=== PATIENT | male | born 1975 | race African-American/Black ===

== ENCOUNTER 2017-07-23 07:27 | Emergency (ER) | payer MEDICARE, MEDICAID ==
[~2017-07-23] VITALS: Ht 167.6 cm; Wt 65.0 kg
[2017-07-23] MEDS ORDERED: SODIUM CHLORIDE 0.9% 1,000 ML IV ONE (07:38)
[2017-07-23] MEDS ORDERED: LORAZEPAM 2MG/ML CPJ IV ONE (07:45)
[2017-07-23 07:58] LABS: HEMATOCRIT. 39.9 % (42.0-52.0); HEMOGLOBIN. 13.2 g/dL (14.0-18.0); LYMPHOCYTES % 27.1 % (20.0-50.0); MEAN CORPUSCULAR HEMOGLOBIN 27.1 pg (28.0-32.0); MEAN CORPUSCULAR VOLUME 81.8 fL (80.0-94.0); MEAN PLATELET VOLUME 7.2 fl (7.4-10.4); MONOCYTES % 11.2 % (2.0-8.0); NEUTROPHILS % 52.7 % (40.0-76.0); PLATELET 239 x1000/uL (130-400); RED BLOOD CELL COUNT 4.88 mill/uL (4.7-6.1); RED CELL DISTRIBUTION WIDTH 14.7 % (11.6-14.6)
[2017-07-23 08:12] LABS: INR 1.1; PROTHROMBIN TIME 11.1 sec (9.4-11.6)
[2017-07-23 08:13] LABS: AMMONIA 40 uMol/L (<32)
[2017-07-23 08:17] LABS: CARBON DIOXIDE 29 mEq/L (21-32); CHLORIDE 102 mEq/L (98-107); ETHANOL BLOOD < 10 mg/dL; TROPONIN I < 0.02 ng/mL (0.00-0.04)
[2017-07-23 10:33] VITALS: BP 120/78
[2017-07-23 11:05] LABS: CLARITY URINE CLEAR (CLEAR); COLOR URINE YELLOW (YELLOW); GLUCOSE URINE NEGATIVE (NEGATIVE); KETONES URINE NEGATIVE (NEGATIVE); LEUKOCYTE ESTERASE URINE 3+ (NEGATIVE); NITRITE URINE POSITIVE (NEGATIVE); OCCULT BLOOD URINE NEGATIVE (NEGATIVE); PH URINE 7.5 (4.5-8.0); PROTEIN URINE NEGATIVE (NEGATIVE); SPECIFIC GRAVITY URINE 1.009 (1.005-1.030); UROBILINOGEN URINE 0.2 E.U./dL (0.2-1.0)
[2017-07-23 11:57] LABS: *AMPHETAMINES SCREEN URINE NEGATIVE (NEGATIVE); *BARBITURATES SCREEN URINE NEGATIVE (NEGATIVE); *BENZODIAZEPINES SCREEN URINE NEGATIVE (NEGATIVE); *COCAINE SCREEN URINE NEGATIVE (NEGATIVE); CANNABINOID URINE SCREEN NEGATIVE (NEGATIVE); METHADONE URINE SCREEN NEGATIVE (NEGATIVE); OPIATES URINE SCREEN NEGATIVE (NEGATIVE); PHENCYCLIDINE URINE SCREEN NEGATIVE (NEGATIVE)
== END 2017-07-23 10:52 | disposition home or self-care (01) ==
LOC: ER 07:45
DX: R55 Syncope and collapse (principal); F79 Unspecified intellectual disabilities; I12.9 Hypertensive chronic kidney disease with stage 1 through stage 4 chronic kidney disease, or unspecified chronic kidney disease; E11.22 Type 2 diabetes mellitus with diabetic chronic kidney disease; N18.9 Chronic kidney disease, unspecified; Z88.8 Allergy status to other drugs, medicaments and biological substances
CPT/HCPCS: 36415; 70450; 71010; 80053; 80305; 81001; 82140; 83690; 83880; 84484; 85025; 85610; 93005; 96361; 96374; 99285; G0482; J2060; J7030

== ENCOUNTER 2019-12-24 13:20 | Inpatient (IN) | payer BC, OTHER, MEDICAID ==
[~2019-12-24] VITALS: Ht 172.7 cm; Wt 58.5 kg
[2019-12-24] MEDS ORDERED: SODIUM CHLORIDE 0.9% 1,000 ML IV ONE ×2 (13:35→15:19)
[2019-12-24 14:10] LABS: HEMATOCRIT. 41.7 % (42.0-52.0); HEMOGLOBIN. 13.2 g/dL (14.0-18.0); MEAN CORPUSCULAR HEMOGLOBIN 26.8 pg (28.0-32.0); MEAN CORPUSCULAR VOLUME 84.4 fL (80.0-94.0); MEAN PLATELET VOLUME 7.8 fl (7.4-10.4); PLATELET 327 x1000/uL (130-400); RED BLOOD CELL COUNT 4.94 mill/uL (4.7-6.1); RED CELL DISTRIBUTION WIDTH 14.7 % (11.6-14.6)
[2019-12-24] MEDS ORDERED: PROPOFOL 10MG/ML 100ML 100 ML IV ONE (14:15)
[2019-12-24 14:17] LABS: CHLORIDE 102 mEq/L (98-107)
[2019-12-24 14:18] LABS: PROTHROMBIN TIME 11.1 sec (9.6-11.0)
[2019-12-24 14:21] LABS: ETHANOL BLOOD < 10 mg/dL
[2019-12-24 14:30] LABS: CLARITY URINE CLEAR (CLEAR); COLOR URINE YELLOW (YELLOW); KETONES URINE NEGATIVE (NEGATIVE); LEUKOCYTE ESTERASE URINE NEGATIVE (NEGATIVE); NITRITE URINE NEGATIVE (NEGATIVE); OCCULT BLOOD URINE 2+ (NEGATIVE); PROTEIN URINE 3+ (NEGATIVE); SPECIFIC GRAVITY URINE 1.024 (1.005-1.030)
[2019-12-24 15:03] LABS: *AMPHETAMINES SCREEN URINE NEGATIVE (NEGATIVE); *BARBITURATES SCREEN URINE NEGATIVE (NEGATIVE); *BENZODIAZEPINES SCREEN URINE NEGATIVE (NEGATIVE); *COCAINE SCREEN URINE NEGATIVE (NEGATIVE)
[2019-12-24 15:04] LABS: CANNABINOID URINE SCREEN NEGATIVE (NEGATIVE); METHADONE URINE SCREEN NEGATIVE (NEGATIVE); OPIATES URINE SCREEN NEGATIVE (NEGATIVE); PHENCYCLIDINE URINE SCREEN NEGATIVE (NEGATIVE)
[2019-12-24] MEDS ORDERED: CEFTRIAXONE 1 G PREMIX 50 ML IV ONE (15:15)
[2019-12-24 15:34] LABS: PLATELET ESTIMATE NORMAL
[2019-12-24] MEDS ORDERED: LEVOFLOXACIN 750MG PREMIX 150 ML IV ONE (15:45)
[2019-12-24] MEDS ORDERED: SODIUM CHLORIDE 0.9% 1000ML BAG (SEPSIS BOLUS) IV ONE (15:45)
[2019-12-24] MEDS ORDERED: ACETAMINOPHEN 650MG SUPP PR PRN (17:15)
[2019-12-24] MEDS ORDERED: ONDANSETRON HCL 4MG/2ML INJ IV PRN (17:15)
[2019-12-24 17:52] LABS: BG BASE EXCESS -7.5 mmol/L (-2.0-2.0); BG CARBOXYHEMOGLOBIN 0.3 % (0.5-1.5); BG DEOXYHEMOGLOBIN 8.8 % (0.0-5.0); BG FRACTION INSPIRED OXYGEN 100; BG HCO3 ACT 18.1 mmol/L (22.0-26.0); BG METHEMOGLOBIN 0.2 % (0.0-1.5); BG OXYGEN SATURATION 91.2 % (92.0-98.5); BG OXYHEMOGLOBIN 90.7 % (94.0-97.0); BG PCO2 37.1 mmHg (35.0-45.0); BG PH 7.306 (7.350-7.450); BG PO2 64.8 mmHg (75.0-100.0); BG SAMPLE SITE RIGHT RADIAL; BG TIDAL VOLUME(mL) 550 mL; BG TOTAL HEMOGLOBIN 13.8 g/dL (12.0-18.0); BG VENT MODE VENT - A/C; BG VENT RATE 18 set
[2019-12-24] MEDS ORDERED: AZITHROMYCIN 500 MG in DEXT 5% WATER 250 ML IV SCH (19:30)
[2019-12-25] VITALS (91 sets, daily range): BP systolic 69–208; BP diastolic 18–250
[2019-12-25] MEDS ORDERED: SODIUM CHLORIDE 0.9% 250 ML IV ONE (03:00)
[2019-12-25] MEDS ORDERED: LORAZEPAM 2MG/ML CPJ IV PRN (03:00)
[2019-12-25 04:45] LABS: BG BASE EXCESS -9.3 mmol/L (-2.0-2.0); BG CARBOXYHEMOGLOBIN 0.3 % (0.5-1.5); BG DEOXYHEMOGLOBIN 13.1 % (0.0-5.0); BG FRACTION INSPIRED OXYGEN 100; BG METHEMOGLOBIN 0.2 % (0.0-1.5); BG OXYGEN SATURATION 86.8 % (92.0-98.5); BG OXYHEMOGLOBIN 86.4 % (94.0-97.0); BG PCO2 28.6 mmHg (35.0-45.0); BG PH 7.337 (7.350-7.450); BG PO2 53.6 mmHg (75.0-100.0); BG SAMPLE SITE LEFT BRACHIAL; BG TIDAL VOLUME(mL) 550 mL; BG TOTAL HEMOGLOBIN 13.6 g/dL (12.0-18.0); BG VENT MODE VENT - A/C; BG VENT RATE 18 set
[2019-12-25] MEDS ORDERED: SODIUM CHLORIDE 0.9% 500 ML IV ONE (05:00)
[2019-12-25] MEDS ORDERED: CEFEPIME 2,000 MG in DEXT 5% WATER 100 ML IV SCH (05:00)
[2019-12-25] MEDS ORDERED: PHENYLEPHRINE 40 MG in DEXT 5% WATER 246 ML IV PRN (05:00)
[2019-12-25] MEDS ORDERED: NOREPINEPHRINE 32 MG in DEXT 5% WATER 468 ML IV PRN (05:00)
[2019-12-25 05:44] LABS: HEMATOCRIT. 41.2 % (42.0-52.0); MEAN CORPUSCULAR HEMOGLOBIN 26.7 pg (28.0-32.0); MEAN CORPUSCULAR VOLUME 84.4 fL (80.0-94.0); MEAN PLATELET VOLUME 8.3 fl (7.4-10.4); PLATELET 221 x1000/uL (130-400); RED BLOOD CELL COUNT 4.88 mill/uL (4.7-6.1); RED CELL DISTRIBUTION WIDTH 14.8 % (11.6-14.6)
[2019-12-25 06:06] LABS: CHLORIDE 109 mEq/L (98-107)
[2019-12-25 06:17] LABS: LDL CHOLESTEROL 14 mg/dL (5-100)
[2019-12-25 06:18] LABS: HDL CHOLESTEROL 81 mg/dL (40-59)
[2019-12-25 06:29] LABS: CREATINE KINASE 2769 IU/L (39-308)
[2019-12-25] MEDS: HYDROXYCHLOROQUINE SULFATE 200MG TABLET PO SCH ×2 (06:34→18:36)
[2019-12-25] MEDS: LORAZEPAM 2MG/ML CPJ IV PRN (06:40)
[2019-12-25] MEDS: ASCORBIC ACID 500 MG TABLET PO SCH ×2 (09:00→20:12)
[2019-12-25] MEDS: ZINC SULFATE 220 MG ( 50 ) CAPSULE PO SCH (09:00)
[2019-12-25] MEDS: ENOXAPARIN 40MG/0.4ML SYR SUBCUT SCH (09:00)
[2019-12-25 10:18] LABS: PLATELET ESTIMATE NORMAL
[2019-12-25] MEDS: PANTOPRAZOLE SODIUM 40 MG/VIAL IV SCH (15:00)
[2019-12-25] MEDS ORDERED: AZITHROMYCIN 500 MG in DEXT 5% WATER 250 ML IV SCH (20:00)
[2019-12-25] MEDS: LEVETIRACETAM 500MG/5ML CUP PO SCH (20:12)
[2019-12-25] MEDS: CEFEPIME 2,000 MG in DEXT 5% WATER 100 ML IV SCH (20:45)
[2019-12-25] MEDS: AZITHROMYCIN 500 MG in DEXT 5% WATER 250 ML IV SCH (20:46)
[2019-12-26] VITALS (87 sets, daily range): BP systolic 73–143; BP diastolic 34–121
[2019-12-26] MEDS: LORAZEPAM 2MG/ML CPJ IV PRN ×2 (03:31→22:20)
[2019-12-26] MEDS: HYDROXYCHLOROQUINE SULFATE 200MG TABLET PO SCH ×2 (05:44→17:08)
[2019-12-26] MEDS: CEFEPIME 2,000 MG in DEXT 5% WATER 100 ML IV SCH ×2 (08:09→22:20)
[2019-12-26] MEDS: ZINC SULFATE 220 MG ( 50 ) CAPSULE PO SCH (08:09)
[2019-12-26] MEDS: ASCORBIC ACID 500 MG TABLET PO SCH ×2 (08:09→22:20)
[2019-12-26] MEDS: PANTOPRAZOLE SODIUM 40 MG/VIAL IV SCH (08:09)
[2019-12-26] MEDS: LEVETIRACETAM 500MG/5ML CUP PO SCH ×2 (08:09→22:20)
[2019-12-26] MEDS: ENOXAPARIN 40MG/0.4ML SYR SUBCUT SCH (08:10)
[2019-12-26] MEDS: ACETAMINOPHEN 325MG TABLET PO PRN ×2 (08:47→14:30)
[2019-12-26 09:32] LABS: BG BASE EXCESS -2.8 mmol/L (-2.0-2.0); BG CARBOXYHEMOGLOBIN 0.3 % (0.5-1.5); BG DEOXYHEMOGLOBIN 0.3 % (0.0-5.0); BG FRACTION INSPIRED OXYGEN 100; BG HCO3 ACT 20.8 mmol/L (22.0-26.0); BG METHEMOGLOBIN 0.5 % (0.0-1.5); BG OXYGEN SATURATION 99.7 % (92.0-98.5); BG OXYHEMOGLOBIN 98.9 % (94.0-97.0); BG PCO2 32.9 mmHg (35.0-45.0); BG PH 7.418 (7.350-7.450); BG SAMPLE SITE RIGHT RADIAL; BG TIDAL VOLUME(mL) 550 mL; BG TOTAL HEMOGLOBIN 13.9 g/dL (12.0-18.0); BG VENT MODE VENT - A/C; BG VENT RATE 18 set
[2019-12-26] MEDS: AZITHROMYCIN 500 MG in DEXT 5% WATER 250 ML IV SCH (22:20)
[2019-12-27] VITALS (56 sets, daily range): BP systolic 103–150; BP diastolic 55–86
[2019-12-27] MEDS ORDERED: DEXTROSE 50% WATER 50ML SYRINGE IV PRN (03:00)
[2019-12-27 05:27] LABS: HEMATOCRIT. 35.9 % (42.0-52.0); HEMOGLOBIN. 11.3 g/dL (14.0-18.0); MEAN CORPUSCULAR HEMOGLOBIN 26.9 pg (28.0-32.0); MEAN CORPUSCULAR VOLUME 85.6 fL (80.0-94.0); MEAN PLATELET VOLUME 8.5 fl (7.4-10.4); PLATELET 213 x1000/uL (130-400); RED CELL DISTRIBUTION WIDTH 15.3 % (11.6-14.6)
[2019-12-27] MEDS: HYDROXYCHLOROQUINE SULFATE 200MG TABLET PO SCH (05:33)
[2019-12-27 05:51] LABS: CHLORIDE 100 mEq/L (98-107)
[2019-12-27 06:05] LABS: PHOSPHORUS 1.8 mg/dL (2.5-4.9)
[2019-12-27] MEDS: BLOOD SUGAR DIAGNOSTIC STRIP TEST SCH ×4 (07:30→21:03)
[2019-12-27] MEDS: INSULIN LISPRO 100 UNITS/ML SUBCUT SCH ×4 (07:31→21:03)
[2019-12-27] MEDS: ENOXAPARIN 40MG/0.4ML SYR SUBCUT SCH (09:20)
[2019-12-27] MEDS: ZINC SULFATE 220 MG ( 50 ) CAPSULE PO SCH (09:20)
[2019-12-27] MEDS: LEVETIRACETAM 500MG/5ML CUP PO SCH ×2 (09:20→21:02)
[2019-12-27] MEDS: ASCORBIC ACID 500 MG TABLET PO SCH ×2 (09:20→21:02)
[2019-12-27] MEDS: CEFEPIME 2,000 MG in DEXT 5% WATER 100 ML IV SCH ×2 (09:20→19:01)
[2019-12-27 09:34] LABS: BG BASE EXCESS -0.5 mmol/L (-2.0-2.0); BG CARBOXYHEMOGLOBIN 0.3 % (0.5-1.5); BG DEOXYHEMOGLOBIN 1.4 % (0.0-5.0); BG FRACTION INSPIRED OXYGEN 60; BG HCO3 ACT 23.5 mmol/L (22.0-26.0); BG METHEMOGLOBIN 0.3 % (0.0-1.5); BG OXYGEN SATURATION 98.6 % (92.0-98.5); BG PCO2 36.6 mmHg (35.0-45.0); BG PH 7.426 (7.350-7.450); BG PO2 117.3 mmHg (75.0-100.0); BG SAMPLE SITE RIGHT BRACHIAL; BG TIDAL VOLUME(mL) 550 mL; BG TOTAL HEMOGLOBIN 13.3 g/dL (12.0-18.0); BG VENT MODE VENT - A/C; BG VENT RATE 18 set
[2019-12-27 10:20] LABS: NUCLEATED RED BLOOD CELLS 1 /100 WBC; PLATELET ESTIMATE NORMAL
[2019-12-27] MEDS: PANTOPRAZOLE SODIUM 40 MG/VIAL IV SCH (10:29)
[2019-12-27] MEDS ORDERED: POTASSIUM PHOS,M-BASIC-D-BASIC 20 MMOL in DEXT 5% WATER 243.3333 ML IV SCH (11:00)
[2019-12-27] MEDS: AZITHROMYCIN 500 MG in DEXT 5% WATER 250 ML IV SCH (21:02)
[2019-12-28] VITALS (36 sets, daily range): BP systolic 96–154; BP diastolic 45–87
[2019-12-28 05:35] LABS: HEMATOCRIT. 36.5 % (42.0-52.0); HEMOGLOBIN. 11.7 g/dL (14.0-18.0); MEAN CORPUSCULAR HEMOGLOBIN 26.5 pg (28.0-32.0); MEAN CORPUSCULAR VOLUME 82.2 fL (80.0-94.0); MEAN PLATELET VOLUME 8.7 fl (7.4-10.4); PLATELET 252 x1000/uL (130-400); RED BLOOD CELL COUNT 4.44 mill/uL (4.7-6.1); RED CELL DISTRIBUTION WIDTH 15.1 % (11.6-14.6)
[2019-12-28 05:45] LABS: CHLORIDE 108 mEq/L (98-107)
[2019-12-28] MEDS: CEFEPIME 2,000 MG in DEXT 5% WATER 100 ML IV SCH ×2 (07:12→20:27)
[2019-12-28] MEDS: BLOOD SUGAR DIAGNOSTIC STRIP TEST SCH ×4 (08:27→20:36)
[2019-12-28] MEDS: ASCORBIC ACID 500 MG TABLET PO SCH ×2 (08:36→20:34)
[2019-12-28] MEDS: LEVETIRACETAM 500MG/5ML CUP PO SCH ×2 (08:36→20:34)
[2019-12-28] MEDS: PANTOPRAZOLE SODIUM 40 MG/VIAL IV SCH (08:36)
[2019-12-28] MEDS: ZINC SULFATE 220 MG ( 50 ) CAPSULE PO SCH (08:36)
[2019-12-28] MEDS: ENOXAPARIN 40MG/0.4ML SYR SUBCUT SCH (08:37)
[2019-12-28] MEDS: INSULIN LISPRO 100 UNITS/ML SUBCUT SCH ×4 (08:39→21:44)
[2019-12-28] MEDS ORDERED: METOPROLOL TARTRATE 25MG TABLET PO SCH (10:45)
[2019-12-28 11:11] LABS: BG BASE EXCESS 3.9 mmol/L (-2.0-2.0); BG DEOXYHEMOGLOBIN 1.1 % (0.0-5.0); BG FRACTION INSPIRED OXYGEN 60; BG HCO3 ACT 28.1 mmol/L (22.0-26.0); BG METHEMOGLOBIN 0.4 % (0.0-1.5); BG OXYGEN SATURATION 98.9 % (92.0-98.5); BG OXYHEMOGLOBIN 98.5 % (94.0-97.0); BG PCO2 40.9 mmHg (35.0-45.0); BG PH 7.455 (7.350-7.450); BG PO2 136.4 mmHg (75.0-100.0); BG SAMPLE SITE RIGHT RADIAL; BG TIDAL VOLUME(mL) 550 mL; BG TOTAL HEMOGLOBIN 12.5 g/dL (12.0-18.0); BG VENT MODE VENT - A/C; BG VENT RATE 18 set
[2019-12-28] MEDS ORDERED: CLONIDINE 0.1MG TABLET PO NR (11:30)
[2019-12-28 12:08] LABS: PLATELET ESTIMATE NORMAL
[2019-12-28] MEDS: SODIUM CHLORIDE 0.45% 1,000 ML IV SCH (15:22)
[2019-12-28] MEDS ORDERED: SODIUM PHOS,M-BASIC-D-BASIC 15 MM in DEXT 5% WATER 250 ML IV SCH (16:00)
[2019-12-28] MEDS: AZITHROMYCIN 500 MG in DEXT 5% WATER 250 ML IV SCH (20:35)
[2019-12-28] MEDS: ACETAMINOPHEN 325MG TABLET PO PRN (20:35)
[2019-12-28] MEDS: METOPROLOL TARTRATE 25MG TABLET PO SCH (20:36)
[2019-12-29] VITALS (49 sets, daily range): BP systolic 105–152; BP diastolic 41–138
[2019-12-29] MEDS: ACETAMINOPHEN 325MG TABLET PO PRN ×2 (04:15→15:26)
[2019-12-29 06:21] LABS: HEMATOCRIT. 36.9 % (42.0-52.0); HEMOGLOBIN. 11.9 g/dL (14.0-18.0); MEAN CORPUSCULAR HEMOGLOBIN 26.7 pg (28.0-32.0); MEAN CORPUSCULAR VOLUME 82.6 fL (80.0-94.0); MEAN PLATELET VOLUME 8.8 fl (7.4-10.4); PLATELET 238 x1000/uL (130-400); RED BLOOD CELL COUNT 4.47 mill/uL (4.7-6.1); RED CELL DISTRIBUTION WIDTH 14.8 % (11.6-14.6)
[2019-12-29 06:30] LABS: CHLORIDE 107 mEq/L (98-107)
[2019-12-29] MEDS: INSULIN LISPRO 100 UNITS/ML SUBCUT SCH ×4 (08:20→20:32)
[2019-12-29 08:21] LABS: BG BASE EXCESS 0.6 mmol/L (-2.0-2.0); BG CARBOXYHEMOGLOBIN 0.3 % (0.5-1.5); BG DEOXYHEMOGLOBIN 1.9 % (0.0-5.0); BG FRACTION INSPIRED OXYGEN 60; BG HCO3 ACT 25.4 mmol/L (22.0-26.0); BG METHEMOGLOBIN 0.3 % (0.0-1.5); BG OXYGEN SATURATION 98.1 % (92.0-98.5); BG OXYHEMOGLOBIN 97.5 % (94.0-97.0); BG PCO2 41.8 mmHg (35.0-45.0); BG PH 7.402 (7.350-7.450); BG PO2 102.5 mmHg (75.0-100.0); BG SAMPLE SITE RIGHT BRACHIAL; BG TIDAL VOLUME(mL) 550 mL; BG TOTAL HEMOGLOBIN 12.2 g/dL (12.0-18.0); BG VENT MODE VENT - A/C; BG VENT RATE 18 set
[2019-12-29] MEDS: BLOOD SUGAR DIAGNOSTIC STRIP TEST SCH ×4 (08:21→20:32)
[2019-12-29] MEDS: PANTOPRAZOLE SODIUM 40 MG/VIAL IV SCH (08:32)
[2019-12-29] MEDS: CEFEPIME 2,000 MG in DEXT 5% WATER 100 ML IV SCH ×2 (08:32→20:31)
[2019-12-29] MEDS: LEVETIRACETAM 500MG/5ML CUP PO SCH ×2 (08:32→20:31)
[2019-12-29] MEDS: ZINC SULFATE 220 MG ( 50 ) CAPSULE PO SCH (08:32)
[2019-12-29] MEDS: ASCORBIC ACID 500 MG TABLET PO SCH ×2 (08:32→20:32)
[2019-12-29] MEDS: METOPROLOL TARTRATE 25MG TABLET PO SCH ×2 (08:33→20:32)
[2019-12-29] MEDS: ENOXAPARIN 40MG/0.4ML SYR SUBCUT SCH (08:33)
[2019-12-29] MEDS: SODIUM CHLORIDE 0.45% 1,000 ML IV SCH (09:01)
[2019-12-29 12:44] LABS: PLATELET ESTIMATE NORMAL
[2019-12-29] MEDS: DEXT 5%/0.45% NACL 1000ML 1,000 ML IV SCH (18:49)
[2019-12-29] MEDS: VANCOMYCIN 1 G PREMIX 200 ML IV SCH (20:31)
[2019-12-29] MEDS: METRONIDAZOLE 500 MG PREMIX 100 ML IV SCH (21:08)
[2019-12-30] VITALS (45 sets, daily range): BP systolic 95–171; BP diastolic 56–103
[2019-12-30] MEDS: ACETAMINOPHEN 325MG TABLET PO PRN ×3 (00:08→20:50)
[2019-12-30] MEDS: VANCOMYCIN 1 G PREMIX 200 ML IV SCH ×3 (04:38→20:11)
[2019-12-30] MEDS: METRONIDAZOLE 500 MG PREMIX 100 ML IV SCH ×3 (05:26→21:19)
[2019-12-30 06:21] LABS: HEMATOCRIT. 40.7 % (42.0-52.0); HEMOGLOBIN. 12.8 g/dL (14.0-18.0); MEAN CORPUSCULAR HEMOGLOBIN 26.5 pg (28.0-32.0); MEAN CORPUSCULAR VOLUME 83.9 fL (80.0-94.0); MEAN PLATELET VOLUME 9.2 fl (7.4-10.4); PLATELET 264 x1000/uL (130-400); RED BLOOD CELL COUNT 4.85 mill/uL (4.7-6.1); RED CELL DISTRIBUTION WIDTH 15.5 % (11.6-14.6)
[2019-12-30 06:53] LABS: HEPATITIS B SURFACE ANTIGEN NEGATIVE
[2019-12-30 07:00] LABS: CHLORIDE 105 mEq/L (98-107)
[2019-12-30 07:22] LABS: HEPATITIS A AB IGM NEGATIVE (NEGATIVE)
[2019-12-30] MEDS: BLOOD SUGAR DIAGNOSTIC STRIP TEST SCH ×4 (07:26→21:30)
[2019-12-30] MEDS: INSULIN LISPRO 100 UNITS/ML SUBCUT SCH ×4 (07:26→21:32)
[2019-12-30] MEDS: PANTOPRAZOLE SODIUM 40 MG/VIAL IV SCH (08:14)
[2019-12-30] MEDS: ASCORBIC ACID 500 MG TABLET PO SCH ×2 (08:14→21:20)
[2019-12-30] MEDS: ZINC SULFATE 220 MG ( 50 ) CAPSULE PO SCH (08:14)
[2019-12-30] MEDS: CEFEPIME 2,000 MG in DEXT 5% WATER 100 ML IV SCH ×2 (08:14→20:11)
[2019-12-30] MEDS: LEVETIRACETAM 500MG/5ML CUP PO SCH ×2 (08:14→21:19)
[2019-12-30] MEDS: METOPROLOL TARTRATE 25MG TABLET PO SCH ×2 (08:15→21:20)
[2019-12-30] MEDS: ENOXAPARIN 40MG/0.4ML SYR SUBCUT SCH (08:15)
[2019-12-30] MEDS: DEXT 5%/0.45% NACL 1000ML 1,000 ML IV SCH ×2 (08:15→20:11)
[2019-12-30 09:26] LABS: BG BASE EXCESS -0.1 mmol/L (-2.0-2.0); BG CARBOXYHEMOGLOBIN 0.4 % (0.5-1.5); BG DEOXYHEMOGLOBIN 6.4 % (0.0-5.0); BG FRACTION INSPIRED OXYGEN 50; BG HCO3 ACT 24.5 mmol/L (22.0-26.0); BG METHEMOGLOBIN 0.2 % (0.0-1.5); BG OXYGEN SATURATION 93.6 % (92.0-98.5); BG PH 7.405 (7.350-7.450); BG PO2 62.4 mmHg (75.0-100.0); BG PRESSURE SUPPORT 10; BG SAMPLE SITE RIGHT RADIAL; BG TOTAL HEMOGLOBIN 13.3 g/dL (12.0-18.0); BG VENT MODE VENT - CPAP
[2019-12-30 10:56] LABS: PLATELET ESTIMATE NORMAL
[2019-12-31] VITALS (49 sets, daily range): BP systolic 105–192; BP diastolic 60–103
[2019-12-31 02:51] LABS: BASOPHILS % 0.4 % (0.0-2.0); EOSINOPHILS % 3.5 % (0.0-5.0); HEMATOCRIT. 35.1 % (42.0-52.0); HEMOGLOBIN. 11.6 g/dL (14.0-18.0); LYMPHOCYTES % 14.1 % (20.0-50.0); MEAN CORPUSCULAR HEMOGLOBIN 26.8 pg (28.0-32.0); MEAN CORPUSCULAR VOLUME 81.3 fL (80.0-94.0); MEAN PLATELET VOLUME 8.4 fl (7.4-10.4); MONOCYTES % 7.9 % (2.0-8.0); NEUTROPHILS % 74.1 % (40.0-76.0); PLATELET 307 x1000/uL (130-400); RED BLOOD CELL COUNT 4.32 mill/uL (4.7-6.1)
[2019-12-31 02:59] LABS: CHLORIDE 107 mEq/L (98-107)
[2019-12-31 03:08] LABS: VANCOMYCIN TROUGH 24.8 ug/mL (5.0-10.0)
[2019-12-31] MEDS: VANCOMYCIN 1 G PREMIX 200 ML IV SCH (04:02)
[2019-12-31] MEDS: METRONIDAZOLE 500 MG PREMIX 100 ML IV SCH ×3 (04:44→21:04)
[2019-12-31] MEDS: BLOOD SUGAR DIAGNOSTIC STRIP TEST SCH ×4 (07:50→21:05)
[2019-12-31] MEDS: INSULIN LISPRO 100 UNITS/ML SUBCUT SCH ×4 (08:20→21:06)
[2019-12-31] MEDS: ASCORBIC ACID 500 MG TABLET PO SCH ×2 (09:57→21:05)
[2019-12-31] MEDS: ENOXAPARIN 40MG/0.4ML SYR SUBCUT SCH (09:57)
[2019-12-31] MEDS: ZINC SULFATE 220 MG ( 50 ) CAPSULE PO SCH (09:57)
[2019-12-31] MEDS: METOPROLOL TARTRATE 25MG TABLET PO SCH ×2 (09:57→21:05)
[2019-12-31] MEDS: LEVETIRACETAM 500MG/5ML CUP PO SCH ×2 (09:57→21:04)
[2019-12-31] MEDS: PANTOPRAZOLE SODIUM 40 MG/VIAL IV SCH (10:05)
[2019-12-31] MEDS: DEXT 5%/0.45% NACL 1000ML 1,000 ML IV SCH ×2 (10:24→23:54)
[2019-12-31 13:26] LABS: BG BASE EXCESS 1.5 mmol/L (-2.0-2.0); BG CARBOXYHEMOGLOBIN 0.2 % (0.5-1.5); BG DEOXYHEMOGLOBIN 1.2 % (0.0-5.0); BG METHEMOGLOBIN 0.1 % (0.0-1.5); BG OXYGEN SATURATION 98.8 % (92.0-98.5); BG OXYHEMOGLOBIN 98.5 % (94.0-97.0); BG PCO2 35.5 mmHg (35.0-45.0); BG PH 7.465 (7.350-7.450); BG PO2 135.8 mmHg (75.0-100.0); BG SAMPLE SITE RIGHT RADIAL; BG TIDAL VOLUME(mL) 550 mL; BG TOTAL HEMOGLOBIN 12.8 g/dL (12.0-18.0); BG VENT MODE VENT - A/C; BG VENT RATE 18 set
[2019-12-31] MEDS ORDERED: LORAZEPAM 2MG/ML CPJ IV NR (16:15)
[2019-12-31] MEDS: VANCOMYCIN 1250MG in DEXTROSE 5% WATER 250ML IV SCH (17:28)
[2019-12-31] MEDS: CEFEPIME 1,000 MG in DEXTROSE 5% WATER 50 ML IV SCH (20:12)
[2020-01-01] VITALS (47 sets, daily range): BP systolic 121–166; BP diastolic 68–95
[2020-01-01] MEDS: METRONIDAZOLE 500 MG PREMIX 100 ML IV SCH ×3 (04:48→20:42)
[2020-01-01 05:17] LABS: BASOPHILS % 0.2 % (0.0-2.0); EOSINOPHILS % 3.8 % (0.0-5.0); HEMATOCRIT. 35.8 % (42.0-52.0); HEMOGLOBIN. 11.5 g/dL (14.0-18.0); LYMPHOCYTES % 11.5 % (20.0-50.0); MEAN CORPUSCULAR HEMOGLOBIN 26.5 pg (28.0-32.0); MEAN CORPUSCULAR VOLUME 82.3 fL (80.0-94.0); MEAN PLATELET VOLUME 8.6 fl (7.4-10.4); MONOCYTES % 6.9 % (2.0-8.0); NEUTROPHILS % 77.6 % (40.0-76.0); PLATELET 369 x1000/uL (130-400); RED BLOOD CELL COUNT 4.35 mill/uL (4.7-6.1); RED CELL DISTRIBUTION WIDTH 15.3 % (11.6-14.6)
[2020-01-01 05:23] LABS: CHLORIDE 107 mEq/L (98-107)
[2020-01-01] MEDS: VANCOMYCIN 1250MG in DEXTROSE 5% WATER 250ML IV SCH ×2 (06:11→18:45)
[2020-01-01] MEDS: BLOOD SUGAR DIAGNOSTIC STRIP TEST SCH ×4 (07:50→20:43)
[2020-01-01] MEDS: PANTOPRAZOLE SODIUM 40 MG/VIAL IV SCH (09:25)
[2020-01-01] MEDS: LEVETIRACETAM 500MG/5ML CUP PO SCH ×2 (09:25→20:42)
[2020-01-01] MEDS: ZINC SULFATE 220 MG ( 50 ) CAPSULE PO SCH (09:26)
[2020-01-01] MEDS: CEFEPIME 1,000 MG in DEXTROSE 5% WATER 50 ML IV SCH ×2 (09:26→20:42)
[2020-01-01] MEDS: ENOXAPARIN 40MG/0.4ML SYR SUBCUT SCH (09:26)
[2020-01-01] MEDS: ASCORBIC ACID 500 MG TABLET PO SCH ×2 (09:26→20:42)
[2020-01-01] MEDS: INSULIN LISPRO 100 UNITS/ML SUBCUT SCH ×4 (09:27→20:43)
[2020-01-01] MEDS: METOPROLOL TARTRATE 25MG TABLET PO SCH ×2 (09:30→20:43)
[2020-01-01 09:47] LABS: BG BASE EXCESS 0.7 mmol/L (-2.0-2.0); BG DEOXYHEMOGLOBIN 1.1 % (0.0-5.0); BG FRACTION INSPIRED OXYGEN 50; BG HCO3 ACT 24.4 mmol/L (22.0-26.0); BG METHEMOGLOBIN 0.3 % (0.0-1.5); BG OXYGEN SATURATION 98.9 % (92.0-98.5); BG OXYHEMOGLOBIN 98.6 % (94.0-97.0); BG PCO2 36.3 mmHg (35.0-45.0); BG PH 7.446 (7.350-7.450); BG SAMPLE SITE RIGHT RADIAL; BG TIDAL VOLUME(mL) 550 mL; BG TOTAL HEMOGLOBIN 12.5 g/dL (12.0-18.0); BG VENT MODE VENT - A/C; BG VENT RATE 18 set
[2020-01-01 10:47] LABS: BG BASE EXCESS 0.8 mmol/L (-2.0-2.0); BG CARBOXYHEMOGLOBIN 0.3 % (0.5-1.5); BG DEOXYHEMOGLOBIN 1.2 % (0.0-5.0); BG FRACTION INSPIRED OXYGEN 50; BG HCO3 ACT 24.8 mmol/L (22.0-26.0); BG METHEMOGLOBIN 0.4 % (0.0-1.5); BG OXYGEN SATURATION 98.8 % (92.0-98.5); BG OXYHEMOGLOBIN 98.1 % (94.0-97.0); BG PCO2 37.5 mmHg (35.0-45.0); BG PH 7.438 (7.350-7.450); BG PO2 130.9 mmHg (75.0-100.0); BG PRESSURE SUPPORT 10; BG SAMPLE SITE RIGHT RADIAL; BG TOTAL HEMOGLOBIN 12.6 g/dL (12.0-18.0); BG VENT MODE VENT - CPAP
[2020-01-01] MEDS ORDERED: POTASSIUM CHLORIDE INJ 40 MEQ in DEXT 5% WATER 250 ML IV SCH (12:00)
[2020-01-01] MEDS: DEXT 5%/0.45% NACL 1000ML 1,000 ML IV SCH (12:30)
[2020-01-01] MEDS ORDERED: PROPOFOL 10MG/ML 100ML 100 ML IV PRN (15:00)
[2020-01-02] VITALS (49 sets, daily range): BP systolic 132–170; BP diastolic 71–108
[2020-01-02] MEDS: METRONIDAZOLE 500 MG PREMIX 100 ML IV SCH ×3 (05:10→21:11)
[2020-01-02] MEDS: VANCOMYCIN 1250MG in DEXTROSE 5% WATER 250ML IV SCH (05:44)
[2020-01-02 05:45] LABS: CHLORIDE 107 mEq/L (98-107)
[2020-01-02 05:48] LABS: BASOPHILS % 0.5 % (0.0-2.0); EOSINOPHILS % 2.1 % (0.0-5.0); HEMATOCRIT. 37.3 % (42.0-52.0); LYMPHOCYTES % 10.2 % (20.0-50.0); MEAN CORPUSCULAR HEMOGLOBIN 26.5 pg (28.0-32.0); MEAN PLATELET VOLUME 8.6 fl (7.4-10.4); NEUTROPHILS % 79.2 % (40.0-76.0); PLATELET 438 x1000/uL (130-400); RED BLOOD CELL COUNT 4.54 mill/uL (4.7-6.1); RED CELL DISTRIBUTION WIDTH 15.3 % (11.6-14.6)
[2020-01-02] MEDS: BLOOD SUGAR DIAGNOSTIC STRIP TEST SCH ×4 (08:20→21:12)
[2020-01-02] MEDS: LEVETIRACETAM 500MG/5ML CUP PO SCH ×2 (08:36→21:11)
[2020-01-02] MEDS: ZINC SULFATE 220 MG ( 50 ) CAPSULE PO SCH (08:36)
[2020-01-02] MEDS: PANTOPRAZOLE SODIUM 40 MG/VIAL IV SCH (08:36)
[2020-01-02] MEDS: METOPROLOL TARTRATE 25MG TABLET PO SCH ×2 (08:36→21:32)
[2020-01-02] MEDS: ENOXAPARIN 40MG/0.4ML SYR SUBCUT SCH (08:36)
[2020-01-02] MEDS: CEFEPIME 1,000 MG in DEXTROSE 5% WATER 50 ML IV SCH ×2 (08:37→20:56)
[2020-01-02] MEDS: ASCORBIC ACID 500 MG TABLET PO SCH ×2 (08:37→21:11)
[2020-01-02] MEDS: INSULIN LISPRO 100 UNITS/ML SUBCUT SCH ×4 (08:38→21:12)
[2020-01-02 10:18] LABS: BG BASE EXCESS 2.7 mmol/L (-2.0-2.0); BG CARBOXYHEMOGLOBIN 0.3 % (0.5-1.5); BG DEOXYHEMOGLOBIN 1.3 % (0.0-5.0); BG FRACTION INSPIRED OXYGEN 50; BG HCO3 ACT 27.1 mmol/L (22.0-26.0); BG METHEMOGLOBIN 0.3 % (0.0-1.5); BG OXYGEN SATURATION 98.7 % (92.0-98.5); BG OXYHEMOGLOBIN 98.1 % (94.0-97.0); BG PH 7.438 (7.350-7.450); BG SAMPLE SITE RIGHT RADIAL; BG TIDAL VOLUME(mL) 550 mL; BG TOTAL HEMOGLOBIN 12.4 g/dL (12.0-18.0); BG VENT MODE VENT - A/C; BG VENT RATE 18 set
[2020-01-02] MEDS: METHYLPREDNISOLONE SOD SUCC 40 MG/ML VIAL IV SCH ×2 (12:49→21:11)
[2020-01-02] MEDS: CLONIDINE 0.1MG TABLET PO PRN (15:54)
[2020-01-02] MEDS: ACETAMINOPHEN 325MG TABLET PO PRN (17:05)
[2020-01-02] MEDS ORDERED: VANCOMYCIN 1500MG in DEXTROSE 5% WATER 250ML IV SCH (18:00)
[2020-01-03] VITALS (41 sets, daily range): BP systolic 114–153; BP diastolic 57–93
[2020-01-03] MEDS: ACETYLCYSTEINE 100MG/ML 10% VIAL 4ML INH SCH (00:15)
[2020-01-03] MEDS: METRONIDAZOLE 500 MG PREMIX 100 ML IV SCH ×3 (04:36→21:13)
[2020-01-03 06:00] LABS: HEMATOCRIT 36.9 % (42.0-52.0); HEMOGLOBIN 11.8 g/dL (14.0-18.0); MEAN CORPUSCULAR HEMOGLOBIN 26.3 pg (28.0-32.0); PLATELET 544 x1000/uL (130-400); RED CELL DISTRIBUTION WIDTH 15.1 % (11.6-14.6)
[2020-01-03 06:16] LABS: CHLORIDE 107 mEq/L (98-107)
[2020-01-03] MEDS: BLOOD SUGAR DIAGNOSTIC STRIP TEST SCH ×4 (08:18→21:05)
[2020-01-03] MEDS: ZINC SULFATE 220 MG ( 50 ) CAPSULE PO SCH (08:19)
[2020-01-03] MEDS: CEFEPIME 1,000 MG in DEXTROSE 5% WATER 50 ML IV SCH ×2 (08:19→20:29)
[2020-01-03] MEDS: ASCORBIC ACID 500 MG TABLET PO SCH ×2 (08:19→21:13)
[2020-01-03] MEDS: PANTOPRAZOLE SODIUM 40 MG/VIAL IV SCH (08:19)
[2020-01-03] MEDS: INSULIN LISPRO 100 UNITS/ML SUBCUT SCH ×4 (08:20→21:00)
[2020-01-03] MEDS: METOPROLOL TARTRATE 25MG TABLET PO SCH ×2 (08:20→21:14)
[2020-01-03] MEDS: ENOXAPARIN 40MG/0.4ML SYR SUBCUT SCH (08:20)
[2020-01-03] MEDS: LEVETIRACETAM 500MG/5ML CUP PO SCH ×2 (08:20→21:13)
[2020-01-03] MEDS: METHYLPREDNISOLONE SOD SUCC 40 MG/ML VIAL IV SCH ×2 (08:24→21:13)
[2020-01-04] VITALS (45 sets, daily range): BP systolic 123–172; BP diastolic 73–104
[2020-01-04] MEDS: CLONIDINE 0.1MG TABLET PO PRN (02:49)
[2020-01-04 05:59] LABS: BASOPHILS % 0.5 % (0.0-2.0); EOSINOPHILS % 0.3 % (0.0-5.0); HEMATOCRIT. 36.8 % (42.0-52.0); HEMOGLOBIN. 11.6 g/dL (14.0-18.0); LYMPHOCYTES % 9.6 % (20.0-50.0); MEAN CORPUSCULAR HEMOGLOBIN 26.1 pg (28.0-32.0); MEAN CORPUSCULAR VOLUME 82.7 fL (80.0-94.0); MEAN PLATELET VOLUME 8.3 fl (7.4-10.4); MONOCYTES % 5.9 % (2.0-8.0); NEUTROPHILS % 83.7 % (40.0-76.0); PLATELET 625 x1000/uL (130-400); RED BLOOD CELL COUNT 4.45 mill/uL (4.7-6.1); RED CELL DISTRIBUTION WIDTH 15.2 % (11.6-14.6)
[2020-01-04 06:37] LABS: CHLORIDE 108 mEq/L (98-107)
[2020-01-04] MEDS: BLOOD SUGAR DIAGNOSTIC STRIP TEST SCH ×4 (07:50→21:00)
[2020-01-04] MEDS: INSULIN LISPRO 100 UNITS/ML SUBCUT SCH ×4 (08:20→21:00)
[2020-01-04] MEDS ORDERED: IPRATROPIUM/ALBUTEROL 0.5-3(2.5)MG/3ML NEB ONE (08:41)
[2020-01-04] MEDS: ACETYLCYSTEINE 100MG/ML 10% VIAL 4ML INH SCH ×2 (08:42→16:46)
[2020-01-04] MEDS: PANTOPRAZOLE SODIUM 40 MG/VIAL IV SCH (09:16)
[2020-01-04] MEDS: CEFEPIME 1,000 MG in DEXTROSE 5% WATER 50 ML IV SCH ×2 (09:16→19:49)
[2020-01-04] MEDS: ZINC SULFATE 220 MG ( 50 ) CAPSULE PO SCH (09:17)
[2020-01-04] MEDS: METOPROLOL TARTRATE 25MG TABLET PO SCH (09:17)
[2020-01-04] MEDS: ENOXAPARIN 40MG/0.4ML SYR SUBCUT SCH (09:17)
[2020-01-04] MEDS: LEVETIRACETAM 500MG/5ML CUP PO SCH ×2 (09:17→20:12)
[2020-01-04] MEDS: METHYLPREDNISOLONE SOD SUCC 40 MG/ML VIAL IV SCH (09:17)
[2020-01-04] MEDS: ASCORBIC ACID 500 MG TABLET PO SCH ×2 (09:17→21:19)
[2020-01-04] MEDS ORDERED: METOPROLOL TARTRATE 25MG TABLET PO NR (10:45)
[2020-01-04 10:52] LABS: BG BASE EXCESS 4.6 mmol/L (-2.0-2.0); BG CARBOXYHEMOGLOBIN 0.3 % (0.5-1.5); BG DEOXYHEMOGLOBIN 0.8 % (0.0-5.0); BG FRACTION INSPIRED OXYGEN 50; BG HCO3 ACT 28.6 mmol/L (22.0-26.0); BG METHEMOGLOBIN 0.3 % (0.0-1.5); BG OXYGEN SATURATION 99.2 % (92.0-98.5); BG OXYHEMOGLOBIN 98.6 % (94.0-97.0); BG PH 7.472 (7.350-7.450); BG PO2 164.3 mmHg (75.0-100.0); BG SAMPLE SITE RIGHT RADIAL; BG TIDAL VOLUME(mL) 550 mL; BG TOTAL HEMOGLOBIN 12.3 g/dL (12.0-18.0); BG VENT MODE VENT - A/C; BG VENT RATE 18 set
[2020-01-04] MEDS ORDERED: PROPOFOL 10MG/ML 100ML 100 ML IV PRN (11:00)
[2020-01-04 12:36] LABS: BG BASE EXCESS 2.5 mmol/L (-2.0-2.0); BG CARBOXYHEMOGLOBIN 0.3 % (0.5-1.5); BG FRACTION INSPIRED OXYGEN 40; BG HCO3 ACT 27.8 mmol/L (22.0-26.0); BG METHEMOGLOBIN 0.3 % (0.0-1.5); BG OXYHEMOGLOBIN 96.4 % (94.0-97.0); BG PCO2 45.8 mmHg (35.0-45.0); BG PH 7.401 (7.350-7.450); BG PO2 91.9 mmHg (75.0-100.0); BG PRESSURE SUPPORT 10; BG SAMPLE SITE RIGHT BRACHIAL; BG TOTAL HEMOGLOBIN 13.2 g/dL (12.0-18.0); BG VENT MODE VENT - CPAP
[2020-01-04] MEDS: IPRATROPIUM/ALBUTEROL 0.5-3(2.5)MG/3ML NEB HHN SCH ×3 (12:49→20:43)
[2020-01-04] MEDS: METOPROLOL TARTRATE 50MG TABLET PO SCH (20:13)
[2020-01-05] VITALS (36 sets, daily range): BP systolic 109–165; BP diastolic 66–105
[2020-01-05] MEDS: ACETYLCYSTEINE 100MG/ML 10% VIAL 4ML INH SCH ×2 (00:11→11:42)
[2020-01-05] MEDS: IPRATROPIUM/ALBUTEROL 0.5-3(2.5)MG/3ML NEB HHN SCH ×5 (00:12→20:08)
[2020-01-05 06:27] LABS: BASOPHILS % 0.4 % (0.0-2.0); EOSINOPHILS % 0.9 % (0.0-5.0); HEMATOCRIT. 36.5 % (42.0-52.0); HEMOGLOBIN. 11.8 g/dL (14.0-18.0); LYMPHOCYTES % 7.7 % (20.0-50.0); MEAN CORPUSCULAR HEMOGLOBIN 26.6 pg (28.0-32.0); MEAN CORPUSCULAR VOLUME 82.6 fL (80.0-94.0); MEAN PLATELET VOLUME 8.2 fl (7.4-10.4); MONOCYTES % 8.9 % (2.0-8.0); NEUTROPHILS % 82.1 % (40.0-76.0); PLATELET 737 x1000/uL (130-400); RED BLOOD CELL COUNT 4.42 mill/uL (4.7-6.1); RED CELL DISTRIBUTION WIDTH 15.3 % (11.6-14.6)
[2020-01-05 06:43] LABS: CHLORIDE 104 mEq/L (98-107)
[2020-01-05] MEDS ORDERED: DIATR MEGLU/DIATRIZOATE SOLN 30ML PO SCH (07:30)
[2020-01-05 07:43] LABS: BG BASE EXCESS 6.3 mmol/L (-2.0-2.0); BG CARBOXYHEMOGLOBIN 0.4 % (0.5-1.5); BG DEOXYHEMOGLOBIN 3.1 % (0.0-5.0); BG FRACTION INSPIRED OXYGEN 36; BG HCO3 ACT 30.8 mmol/L (22.0-26.0); BG METHEMOGLOBIN 0.1 % (0.0-1.5); BG OXYGEN SATURATION 96.9 % (92.0-98.5); BG OXYHEMOGLOBIN 96.4 % (94.0-97.0); BG PCO2 43.8 mmHg (35.0-45.0); BG PH 7.465 (7.350-7.450); BG PO2 86.4 mmHg (75.0-100.0); BG SAMPLE SITE RIGHT RADIAL; BG TOTAL HEMOGLOBIN 13.5 g/dL (12.0-18.0); BG VENT MODE NASAL CANNULA
[2020-01-05] MEDS: BLOOD SUGAR DIAGNOSTIC STRIP TEST SCH ×4 (07:50→20:34)
[2020-01-05] MEDS ORDERED: IOHEXOL-300 100 ML BOTTLE ONE (07:57)
[2020-01-05] MEDS ORDERED: DIATR MEGLU/DIATRIZOATE SOLN 120ML ONE (07:57)
[2020-01-05] MEDS: INSULIN LISPRO 100 UNITS/ML SUBCUT SCH ×4 (08:20→21:00)
[2020-01-05] MEDS ORDERED: METHYLPREDNISOLONE SOD SUCC 40 MG/ML VIAL IV SCH (09:00)
[2020-01-05] MEDS ORDERED: DEXT 5%/0.45% NACL 1000ML 1,000 ML IV SCH (09:15)
[2020-01-05] MEDS: CEFEPIME 1,000 MG in DEXTROSE 5% WATER 50 ML IV SCH ×2 (09:21→19:42)
[2020-01-05] MEDS: ENOXAPARIN 40MG/0.4ML SYR SUBCUT SCH (09:21)
[2020-01-05] MEDS: PANTOPRAZOLE SODIUM 40 MG/VIAL IV SCH (09:25)
[2020-01-05] MEDS: LEVETIRACETAM 500MG/5ML CUP PO SCH ×2 (10:36→20:32)
[2020-01-05] MEDS: ZINC SULFATE 220 MG ( 50 ) CAPSULE PO SCH (10:40)
[2020-01-05] MEDS: ASCORBIC ACID 500 MG TABLET PO SCH ×2 (10:40→20:33)
[2020-01-05] MEDS: METOPROLOL TARTRATE 50MG TABLET PO SCH ×2 (10:40→20:34)
[2020-01-05] MEDS ORDERED: IOHEXOL-350 100 ML BOTTLE ONE (13:25)
[2020-01-06] VITALS (40 sets, daily range): BP systolic 103–163; BP diastolic 60–108
[2020-01-06] MEDS: ACETYLCYSTEINE 100MG/ML 10% VIAL 4ML INH SCH ×3 (00:07→16:30)
[2020-01-06] MEDS: IPRATROPIUM/ALBUTEROL 0.5-3(2.5)MG/3ML NEB HHN SCH ×6 (00:07→20:25)
[2020-01-06 06:17] LABS: BASOPHILS % 0.8 % (0.0-2.0); EOSINOPHILS % 1.7 % (0.0-5.0); HEMATOCRIT. 38.3 % (42.0-52.0); HEMOGLOBIN. 12.1 g/dL (14.0-18.0); LYMPHOCYTES % 9.3 % (20.0-50.0); MEAN CORPUSCULAR HEMOGLOBIN 26.3 pg (28.0-32.0); MONOCYTES % 7.9 % (2.0-8.0); NEUTROPHILS % 80.3 % (40.0-76.0); PLATELET 715 x1000/uL (130-400); RED BLOOD CELL COUNT 4.61 mill/uL (4.7-6.1); RED CELL DISTRIBUTION WIDTH 15.2 % (11.6-14.6)
[2020-01-06 06:26] LABS: CHLORIDE 99 mEq/L (98-107)
[2020-01-06 07:50] LABS: BG BASE EXCESS 9.2 mmol/L (-2.0-2.0); BG CARBOXYHEMOGLOBIN 0.3 % (0.5-1.5); BG DEOXYHEMOGLOBIN 0.6 % (0.0-5.0); BG FRACTION INSPIRED OXYGEN 100; BG HCO3 ACT 34.9 mmol/L (22.0-26.0); BG METHEMOGLOBIN 0.2 % (0.0-1.5); BG OXYGEN SATURATION 99.4 % (92.0-98.5); BG OXYHEMOGLOBIN 98.9 % (94.0-97.0); BG PCO2 51.9 mmHg (35.0-45.0); BG PH 7.445 (7.350-7.450); BG PO2 246.2 mmHg (75.0-100.0); BG SAMPLE SITE RIGHT RADIAL; BG TOTAL HEMOGLOBIN 12.8 g/dL (12.0-18.0); BG VENT MODE MASK - NRB
[2020-01-06] MEDS: BLOOD SUGAR DIAGNOSTIC STRIP TEST SCH ×4 (08:11→20:57)
[2020-01-06] MEDS: LEVETIRACETAM 500MG/5ML CUP PO SCH ×2 (09:09→20:54)
[2020-01-06] MEDS: PANTOPRAZOLE SODIUM 40 MG/VIAL IV SCH (09:09)
[2020-01-06] MEDS: ASCORBIC ACID 500 MG TABLET PO SCH ×2 (09:09→20:54)
[2020-01-06] MEDS: METOPROLOL TARTRATE 50MG TABLET PO SCH ×2 (09:11→21:05)
[2020-01-06] MEDS: INSULIN LISPRO 100 UNITS/ML SUBCUT SCH ×4 (09:11→21:17)
[2020-01-06] MEDS: ENOXAPARIN 40MG/0.4ML SYR SUBCUT SCH (09:11)
[2020-01-06] MEDS: ZINC SULFATE 220 MG ( 50 ) CAPSULE PO SCH (09:11)
[2020-01-06] MEDS: DEXT 5%/0.45% NACL 1000ML 1,000 ML IV SCH (17:38)
[2020-01-06] MEDS: ACETAMINOPHEN 325MG TABLET PO PRN (21:17)
[2020-01-07] VITALS (24 sets, daily range): BP systolic 112–145; BP diastolic 60–93
[2020-01-07] MEDS: IPRATROPIUM/ALBUTEROL 0.5-3(2.5)MG/3ML NEB HHN SCH ×6 (00:25→19:44)
[2020-01-07] MEDS: ACETYLCYSTEINE 100MG/ML 10% VIAL 4ML INH SCH ×4 (00:25→16:38)
[2020-01-07] MEDS: ACETAMINOPHEN 325MG TABLET PO PRN (04:58)
[2020-01-07 06:09] LABS: BASOPHILS % 0.5 % (0.0-2.0); EOSINOPHILS % 1.3 % (0.0-5.0); HEMATOCRIT. 39.3 % (42.0-52.0); HEMOGLOBIN. 12.3 g/dL (14.0-18.0); LYMPHOCYTES % 10.9 % (20.0-50.0); MEAN CORPUSCULAR HEMOGLOBIN 26.1 pg (28.0-32.0); MEAN CORPUSCULAR VOLUME 83.5 fL (80.0-94.0); MEAN PLATELET VOLUME 8.1 fl (7.4-10.4); MONOCYTES % 7.6 % (2.0-8.0); NEUTROPHILS % 79.7 % (40.0-76.0); PLATELET 759 x1000/uL (130-400); RED CELL DISTRIBUTION WIDTH 15.3 % (11.6-14.6)
[2020-01-07 06:23] LABS: CHLORIDE 100 mEq/L (98-107)
[2020-01-07] MEDS: BLOOD SUGAR DIAGNOSTIC STRIP TEST SCH ×4 (07:26→20:51)
[2020-01-07] MEDS: INSULIN LISPRO 100 UNITS/ML SUBCUT SCH ×4 (07:27→20:59)
[2020-01-07 08:05] LABS: BG BASE EXCESS 8.5 mmol/L (-2.0-2.0); BG CARBOXYHEMOGLOBIN 0.5 % (0.5-1.5); BG FRACTION INSPIRED OXYGEN 45; BG HCO3 ACT 33.5 mmol/L (22.0-26.0); BG METHEMOGLOBIN 0.4 % (0.0-1.5); BG OXYHEMOGLOBIN 95.1 % (94.0-97.0); BG PH 7.462 (7.350-7.450); BG PO2 74.9 mmHg (75.0-100.0); BG SAMPLE SITE LEFT RADIAL; BG TOTAL HEMOGLOBIN 12.5 g/dL (12.0-18.0); BG VENT MODE MASK - VENTI
[2020-01-07] MEDS: ASCORBIC ACID 500 MG TABLET PO SCH ×2 (08:30→20:28)
[2020-01-07] MEDS: METOPROLOL TARTRATE 50MG TABLET PO SCH ×2 (08:30→20:28)
[2020-01-07] MEDS: ZINC SULFATE 220 MG ( 50 ) CAPSULE PO SCH (08:30)
[2020-01-07] MEDS: LEVETIRACETAM 500MG/5ML CUP PO SCH ×2 (08:30→20:28)
[2020-01-07] MEDS: PANTOPRAZOLE SODIUM 40 MG/VIAL IV SCH (08:30)
[2020-01-07] MEDS: ENOXAPARIN 40MG/0.4ML SYR SUBCUT SCH (08:33)
[2020-01-07] MEDS: DEXT 5%/0.45% NACL 1000ML 1,000 ML IV SCH (12:12)
[2020-01-08] VITALS (12 sets, daily range): BP systolic 105–131; BP diastolic 60–84
[2020-01-08] MEDS: IPRATROPIUM/ALBUTEROL 0.5-3(2.5)MG/3ML NEB HHN SCH ×6 (00:34→20:00)
[2020-01-08] MEDS: BLOOD SUGAR DIAGNOSTIC STRIP TEST SCH ×4 (06:30→20:55)
[2020-01-08] MEDS: INSULIN LISPRO 100 UNITS/ML SUBCUT SCH ×4 (06:30→21:01)
[2020-01-08] MEDS: ACETYLCYSTEINE 100MG/ML 10% VIAL 4ML INH SCH ×2 (08:10→15:29)
[2020-01-08] MEDS: LEVETIRACETAM 500MG/5ML CUP PO SCH ×2 (10:21→22:00)
[2020-01-08] MEDS: PANTOPRAZOLE SODIUM 40 MG/VIAL IV SCH (10:21)
[2020-01-08] MEDS: ZINC SULFATE 220 MG ( 50 ) CAPSULE PO SCH (10:21)
[2020-01-08] MEDS: METOPROLOL TARTRATE 50MG TABLET PO SCH ×2 (10:21→20:42)
[2020-01-08] MEDS: ASCORBIC ACID 500 MG TABLET PO SCH ×2 (10:22→20:41)
[2020-01-08] MEDS: ENOXAPARIN 40MG/0.4ML SYR SUBCUT SCH (10:22)
[2020-01-09] VITALS (12 sets, daily range): BP systolic 92–122; BP diastolic 57–82
[2020-01-09] MEDS: IPRATROPIUM/ALBUTEROL 0.5-3(2.5)MG/3ML NEB HHN SCH ×4 (03:41→21:05)
[2020-01-09] MEDS: BLOOD SUGAR DIAGNOSTIC STRIP TEST SCH ×4 (05:52→20:33)
[2020-01-09] MEDS: INSULIN LISPRO 100 UNITS/ML SUBCUT SCH ×4 (05:58→20:33)
[2020-01-09 07:49] LABS: EOSINOPHILS % 1.6 % (0.0-5.0); HEMOGLOBIN. 12.2 g/dL (14.0-18.0); LYMPHOCYTES % 9.2 % (20.0-50.0); MEAN CORPUSCULAR HEMOGLOBIN 26.4 pg (28.0-32.0); MEAN CORPUSCULAR VOLUME 82.5 fL (80.0-94.0); MONOCYTES % 9.5 % (2.0-8.0); NEUTROPHILS % 78.7 % (40.0-76.0); PLATELET 787 x1000/uL (130-400); RED BLOOD CELL COUNT 4.61 mill/uL (4.7-6.1); RED CELL DISTRIBUTION WIDTH 15.5 % (11.6-14.6)
[2020-01-09 07:53] LABS: CHLORIDE 99 mEq/L (98-107)
[2020-01-09] MEDS: ASCORBIC ACID 500 MG TABLET PO SCH ×2 (08:05→20:29)
[2020-01-09] MEDS: ZINC SULFATE 220 MG ( 50 ) CAPSULE PO SCH (08:05)
[2020-01-09] MEDS: LEVETIRACETAM 500MG/5ML CUP PO SCH ×2 (08:05→20:29)
[2020-01-09] MEDS: PANTOPRAZOLE SODIUM 40 MG/VIAL IV SCH (08:05)
[2020-01-09] MEDS: METOPROLOL TARTRATE 50MG TABLET PO SCH (08:06)
[2020-01-09] MEDS: ENOXAPARIN 40MG/0.4ML SYR SUBCUT SCH (08:09)
[2020-01-10] VITALS (16 sets, daily range): BP systolic 102–135; BP diastolic 67–88
[2020-01-10] MEDS: IPRATROPIUM/ALBUTEROL 0.5-3(2.5)MG/3ML NEB HHN SCH ×7 (00:52→19:44)
[2020-01-10] MEDS: BLOOD SUGAR DIAGNOSTIC STRIP TEST SCH ×4 (06:04→21:20)
[2020-01-10 07:19] LABS: BASOPHILS % 1.2 % (0.0-2.0); EOSINOPHILS % 2.3 % (0.0-5.0); HEMATOCRIT. 37.9 % (42.0-52.0); HEMOGLOBIN. 12.4 g/dL (14.0-18.0); LYMPHOCYTES % 12.4 % (20.0-50.0); MEAN CORPUSCULAR HEMOGLOBIN 26.9 pg (28.0-32.0); MEAN CORPUSCULAR VOLUME 82.7 fL (80.0-94.0); MEAN PLATELET VOLUME 8.2 fl (7.4-10.4); MONOCYTES % 9.3 % (2.0-8.0); NEUTROPHILS % 74.8 % (40.0-76.0); PLATELET 668 x1000/uL (130-400); RED BLOOD CELL COUNT 4.59 mill/uL (4.7-6.1); RED CELL DISTRIBUTION WIDTH 15.1 % (11.6-14.6)
[2020-01-10] MEDS: INSULIN LISPRO 100 UNITS/ML SUBCUT SCH ×4 (07:20→21:00)
[2020-01-10 07:40] LABS: CHLORIDE 100 mEq/L (98-107)
[2020-01-10] MEDS: PANTOPRAZOLE SODIUM 40 MG/VIAL IV SCH (09:42)
[2020-01-10] MEDS: METOPROLOL TARTRATE 50MG TABLET PO SCH (09:42)
[2020-01-10] MEDS: ZINC SULFATE 220 MG ( 50 ) CAPSULE PO SCH (09:42)
[2020-01-10] MEDS: ENOXAPARIN 40MG/0.4ML SYR SUBCUT SCH (09:42)
[2020-01-10] MEDS: ASCORBIC ACID 500 MG TABLET PO SCH ×2 (09:42→21:20)
[2020-01-10] MEDS: LEVETIRACETAM 500MG/5ML CUP PO SCH ×2 (09:43→21:20)
[2020-01-11] VITALS (11 sets, daily range): BP systolic 108–134; BP diastolic 59–88
[2020-01-11] MEDS: IPRATROPIUM/ALBUTEROL 0.5-3(2.5)MG/3ML NEB HHN SCH ×5 (02:36→21:17)
[2020-01-11] MEDS: INSULIN LISPRO 100 UNITS/ML SUBCUT SCH ×4 (05:57→20:57)
[2020-01-11] MEDS: BLOOD SUGAR DIAGNOSTIC STRIP TEST SCH ×4 (05:57→20:52)
[2020-01-11] MEDS: METOPROLOL TARTRATE 50MG TABLET PO SCH (09:45)
[2020-01-11] MEDS: FAMOTIDINE 20MG TABLET PO SCH ×2 (09:45→20:51)
[2020-01-11] MEDS: ZINC SULFATE 220 MG ( 50 ) CAPSULE PO SCH (09:45)
[2020-01-11] MEDS: ASCORBIC ACID 500 MG TABLET PO SCH ×2 (09:45→20:51)
[2020-01-11] MEDS: LEVETIRACETAM 500MG/5ML CUP PO SCH ×2 (09:46→20:51)
[2020-01-11] MEDS: ENOXAPARIN 40MG/0.4ML SYR SUBCUT SCH (09:46)
[2020-01-12] VITALS (12 sets, daily range): BP systolic 105–129; BP diastolic 71–94
[2020-01-12] MEDS: IPRATROPIUM/ALBUTEROL 0.5-3(2.5)MG/3ML NEB HHN SCH ×6 (04:00→21:39)
[2020-01-12] MEDS: BLOOD SUGAR DIAGNOSTIC STRIP TEST SCH ×4 (05:54→20:38)
[2020-01-12] MEDS: INSULIN LISPRO 100 UNITS/ML SUBCUT SCH ×4 (05:54→20:41)
[2020-01-12] MEDS: ASCORBIC ACID 500 MG TABLET PO SCH ×2 (08:41→20:38)
[2020-01-12] MEDS: LEVETIRACETAM 500MG/5ML CUP PO SCH ×2 (08:41→20:38)
[2020-01-12] MEDS: ZINC SULFATE 220 MG ( 50 ) CAPSULE PO SCH (08:41)
[2020-01-12] MEDS: FAMOTIDINE 20MG TABLET PO SCH ×2 (08:42→20:38)
[2020-01-12] MEDS: ENOXAPARIN 40MG/0.4ML SYR SUBCUT SCH (08:42)
[2020-01-12] MEDS: METOPROLOL TARTRATE 50MG TABLET PO SCH (08:44)
== END 2020-01-12 21:53 | disposition short-term general hospital (02) | DRG 870 ==
LOC: ER 13:20 → EDBEDREQSVC 14:26 → MICUNO 15:32 → EDBEDREQ 15:37 → ENRESERV 23:26 → CVICU 12-26 21:15 → 3WST 01-07 07:56
PROVIDERS: ADMIT Internal Medicine; ATTEND Internal Medicine
PROC: 5A1955Z Respiratory Ventilation, Greater than 96 Consecutive Hours (ICD-10-PCS; principal; 2019-12-24)
PROC: 0BH17EZ Insertion of Endotracheal Airway into Trachea, Via Natural or Artificial Opening (ICD-10-PCS; 2019-12-24)
PROC: 4A10X4Z Monitoring of Central Nervous Electrical Activity, External Approach (ICD-10-PCS; 2019-12-28)
DX: A41.1 Sepsis due to other specified staphylococcus (principal); J69.0 Pneumonitis due to inhalation of food and vomit; J96.01 Acute respiratory failure with hypoxia; R65.21 Severe sepsis with septic shock; K83.1 Obstruction of bile duct; G93.40 Encephalopathy, unspecified; N39.0 Urinary tract infection, site not specified; I10 Essential (primary) hypertension; E11.9 Type 2 diabetes mellitus without complications; E86.0 Dehydration; R74.0 Nonspecific elevation of levels of transaminase and lactic acid dehydrogenase [LDH]; D72.810 Lymphocytopenia; Z20.828 Contact with and (suspected) exposure to other viral communicable diseases; R16.0 Hepatomegaly, not elsewhere classified; F79 Unspecified intellectual disabilities; G40.909 Epilepsy, unspecified, not intractable, without status epilepticus; Z88.8 Allergy status to other drugs, medicaments and biological substances; Z78.1 Physical restraint status; Z91.013 Allergy to seafood; Z91.018 Allergy to other foods
CPT/HCPCS: 36415; 36600; 70551; 71045; 71250; 74018; 74177; 76700; 76705; 78227; 80048; 80053; 80061; 80202; 80305; 80320; 81003; 82140; 82375; 82550; 82805; 82947; 82962; 83605; 83735; 83880; 84100; 84145; 84439; 84443; 84478; 84484; 85025; 85027; 86140; 86705; 86709; 86803; 86850; 86900; 87070; 87077; 87186; 87340; 87635; 87804; 92610; 93005; 93880; 93970; 94002; 94003; 94640; 94667; 95816; 97116; 97162; 97167; 97530; 97535; 99291; A9537; C9113; J0456; J0692; J0696; J1650; J1815; J1956; J2060; J2704; J2920; J3370; J3480; J3490; J7030; J7060; J7608; Q9963; Q9967; G0480

== ENCOUNTER 2020-03-02 07:00 | Emergency (ER) | payer BC, OTHER, MEDICAID ==
[~2020-03-02] VITALS: Ht 167.6 cm; Wt 59.0 kg
[2020-03-02 07:10] VITALS: BP 141/94
[2020-03-02] MEDS ORDERED: ACETAMINOPHEN 325MG TABLET PO ONE (07:30)
== END 2020-03-02 08:58 | disposition home or self-care (01) ==
LOC: ER 07:00
DX: M25.562 Pain in left knee (principal); R03.0 Elevated blood-pressure reading, without diagnosis of hypertension; I11.0 Hypertensive heart disease with heart failure; I50.9 Heart failure, unspecified; Z86.59 Personal history of other mental and behavioral disorders; Z91.010 Allergy to peanuts; Z91.02 Food additives allergy status; Z91.012 Allergy to eggs; Z91.013 Allergy to seafood; Z91.018 Allergy to other foods; Z88.8 Allergy status to other drugs, medicaments and biological substances
CPT/HCPCS: 73562; 99283

== ENCOUNTER 2021-05-22 18:52 | Inpatient (IN) | payer MEDICARE, MEDICAID ==
[~2021-05-22] VITALS: Ht 167.6 cm; Wt 65.3 kg
[2021-05-22 20:56] LABS: BASOPHILS % 0.4 % (0.0-2.0); EOSINOPHILS % 0.8 % (0.0-5.0); HEMATOCRIT. 44.8 % (42.0-52.0); HEMOGLOBIN. 14.7 g/dL (14.0-18.0); LYMPHOCYTES % 13.9 % (20.0-50.0); MEAN CORPUSCULAR HEMOGLOBIN 26.8 pg (28.0-32.0); MEAN CORPUSCULAR VOLUME 81.9 fL (80.0-94.0); MEAN PLATELET VOLUME 8.5 fl (7.4-10.4); MONOCYTES % 6.8 % (2.0-8.0); NEUTROPHILS % 78.1 % (40.0-76.0); PLATELET 195 x1000/uL (130-400); RED BLOOD CELL COUNT 5.47 mill/uL (4.7-6.1); RED CELL DISTRIBUTION WIDTH 14.6 % (11.6-14.6)
[2021-05-22 21:07] LABS: CHLORIDE 104 mEq/L (98-107)
[2021-05-23 04:30] VITALS: BP 127/84
[2021-05-23] MEDS ORDERED: DEXT 5%/0.45% NACL KCL 20MEQ/L 1,000 ML IV SCH (06:15)
[2021-05-23] MEDS ORDERED: ONDANSETRON HCL 4MG/2ML INJ IV PRN (06:15)
[2021-05-23 08:00] VITALS: BP 104/73
[2021-05-23] MEDS ORDERED: DEXT 5%/0.9% NACL 1,000 ML IV SCH (08:00)
[2021-05-23] MEDS: DEXT 5%/0.45% NACL 1000ML 1,000 ML IV SCH ×2 (10:11→17:00)
[2021-05-23 12:00] VITALS: BP 124/73
[2021-05-23] MEDS: PIPERACILLIN/TAZOBACTAM 3.375 G in DEXTROSE 5% WATER 50 ML IV SCH ×2 (15:11→21:51)
[2021-05-23 16:00] VITALS: BP 119/76
[2021-05-23] MEDS ORDERED: DIVA500T3 MT (16:25)
[2021-05-23] MEDS ORDERED: MICAR8 MT (16:25)
[2021-05-23] MEDS ORDERED: EMPA10TA MT (16:25)
[2021-05-23 16:42] LABS: CLARITY URINE CLEAR (CLEAR); COLOR URINE YELLOW (YELLOW); KETONES URINE 1+ (NEGATIVE); LEUKOCYTE ESTERASE URINE NEGATIVE (NEGATIVE); NITRITE URINE NEGATIVE (NEGATIVE); OCCULT BLOOD URINE NEGATIVE (NEGATIVE); PH URINE 5.5 (4.5-8.0); PROTEIN URINE NEGATIVE (NEGATIVE); UROBILINOGEN URINE 0.2 E.U./dL (0.2-1.0)
[2021-05-23 16:49] LABS: *BARBITURATES SCREEN URINE NEGATIVE (NEGATIVE); CANNABINOID URINE SCREEN NEGATIVE (NEGATIVE); METHADONE URINE SCREEN NEGATIVE (NEGATIVE); OPIATES URINE SCREEN NEGATIVE (NEGATIVE); PHENCYCLIDINE URINE SCREEN NEGATIVE (NEGATIVE)
[2021-05-23 16:50] LABS: *AMPHETAMINES SCREEN URINE NEGATIVE (NEGATIVE); *BENZODIAZEPINES SCREEN URINE NEGATIVE (NEGATIVE); *COCAINE SCREEN URINE NEGATIVE (NEGATIVE)
[2021-05-23] MEDS: DIVALPROEX SODIUM 500MG DR TABLET PO SCH (17:00)
[2021-05-23 20:00] VITALS: BP 117/77
[2021-05-24 00:01] VITALS: BP 131/83
[2021-05-24 04:00] VITALS: BP 130/82
[2021-05-24] MEDS: PIPERACILLIN/TAZOBACTAM 3.375 G in DEXTROSE 5% WATER 50 ML IV SCH ×3 (05:13→21:20)
[2021-05-24] MEDS: DEXT 5%/0.45% NACL 1000ML 1,000 ML IV SCH ×4 (05:14→21:20)
[2021-05-24 07:42] LABS: HEMATOCRIT. 47.4 % (42.0-52.0); HEMOGLOBIN. 15.2 g/dL (14.0-18.0); MEAN CORPUSCULAR HEMOGLOBIN 26.7 pg (28.0-32.0); MEAN CORPUSCULAR VOLUME 83.1 fL (80.0-94.0); MEAN PLATELET VOLUME 9.3 fl (7.4-10.4); PLATELET 209 x1000/uL (130-400)
[2021-05-24 07:48] LABS: CHLORIDE 105 mEq/L (98-107)
[2021-05-24 08:00] VITALS: BP 134/98
[2021-05-24] MEDS: DIVALPROEX SODIUM 500MG DR TABLET PO SCH ×2 (09:00→17:00)
[2021-05-24 12:00] VITALS: BP 145/96
[2021-05-24] MEDS ORDERED: LEVETIRACETAM 500 MG in SODIUM CHLORIDE 0.9% 100 ML IV SCH (12:15)
[2021-05-24] MEDS: LEVETIRACETAM 500MG PREMIX 100 ML IV SCH ×2 (13:00→21:20)
[2021-05-24 13:12] LABS: PLATELET ESTIMATE NORMAL
[2021-05-24] MEDS: ACETAMINOPHEN 650MG SUPP PR PRN ×2 (14:29→22:47)
[2021-05-24 16:00] VITALS: BP 122/84
[2021-05-24 20:00] VITALS: BP 131/85
[2021-05-24 21:37] LABS: CREATINE KINASE 90 IU/L (39-308)
[2021-05-25] VITALS: BP 134/74
[2021-05-25 04:00] VITALS: BP 134/80
[2021-05-25] MEDS: DEXT 5%/0.45% NACL 1000ML 1,000 ML IV SCH ×3 (04:43→20:43)
[2021-05-25] MEDS: ACETAMINOPHEN 650MG SUPP PR PRN (04:45)
[2021-05-25] MEDS: PIPERACILLIN/TAZOBACTAM 3.375 G in DEXTROSE 5% WATER 50 ML IV SCH ×3 (06:16→21:26)
[2021-05-25 08:02] VITALS: BP 131/84
[2021-05-25] MEDS: LEVETIRACETAM 500MG PREMIX 100 ML IV SCH ×2 (08:29→20:39)
[2021-05-25] MEDS: DIVALPROEX SODIUM 500MG DR TABLET PO SCH ×2 (08:29→16:25)
[2021-05-25 09:38] LABS: HEMATOCRIT. 45.4 % (42.0-52.0); HEMOGLOBIN. 14.4 g/dL (14.0-18.0); MEAN CORPUSCULAR HEMOGLOBIN 26.4 pg (28.0-32.0); MEAN CORPUSCULAR VOLUME 83.5 fL (80.0-94.0); PLATELET 182 x1000/uL (130-400); RED BLOOD CELL COUNT 5.44 mill/uL (4.7-6.1)
[2021-05-25 09:43] LABS: CHLORIDE 113 mEq/L (98-107)
[2021-05-25 12:00] VITALS: BP 129/69
[2021-05-25 15:00] LABS: PLATELET ESTIMATE NORMAL
[2021-05-25 16:00] VITALS: BP 125/80
[2021-05-25 20:00] VITALS: BP 131/76
[2021-05-26] VITALS (7 sets, daily range): BP systolic 109–162; BP diastolic 58–112
[2021-05-26] MEDS: PIPERACILLIN/TAZOBACTAM 3.375 G in DEXTROSE 5% WATER 50 ML IV SCH ×3 (06:11→21:06)
[2021-05-26] MEDS: DEXT 5%/0.45% NACL 1000ML 1,000 ML IV SCH ×2 (06:11→14:24)
[2021-05-26 07:32] LABS: BASOPHILS % 0.4 % (0.0-2.0); EOSINOPHILS % 1.4 % (0.0-5.0); HEMATOCRIT. 41.3 % (42.0-52.0); HEMOGLOBIN. 13.1 g/dL (14.0-18.0); LYMPHOCYTES % 10.6 % (20.0-50.0); MEAN CORPUSCULAR HEMOGLOBIN 26.7 pg (28.0-32.0); MEAN CORPUSCULAR VOLUME 83.9 fL (80.0-94.0); MEAN PLATELET VOLUME 8.9 fl (7.4-10.4); MONOCYTES % 14.5 % (2.0-8.0); NEUTROPHILS % 73.1 % (40.0-76.0); PLATELET 200 x1000/uL (130-400); RED BLOOD CELL COUNT 4.93 mill/uL (4.7-6.1); RED CELL DISTRIBUTION WIDTH 14.6 % (11.6-14.6)
[2021-05-26 07:36] LABS: CHLORIDE 115 mEq/L (98-107)
[2021-05-26] MEDS: DIVALPROEX SODIUM 500MG DR TABLET PO SCH ×2 (08:23→16:34)
[2021-05-26] MEDS: LEVETIRACETAM 500MG PREMIX 100 ML IV SCH ×2 (08:24→20:54)
[2021-05-26] MEDS: HYDRALAZINE 20MG/ML VIAL IV PRN (09:06)
[2021-05-26] MEDS ORDERED: HYDROCODONE/ACETAMINOPHEN 10/325MG TABLET PO PRN (20:30)
[2021-05-26] MEDS ORDERED: NALOXONE HCL 0.4MG/ML VIAL IV PRN (20:30)
[2021-05-27] VITALS: BP 139/80
[2021-05-27] MEDS: LORAZEPAM 2MG/ML CPJ IV PRN ×2 (00:22→19:42)
[2021-05-27] MEDS: DEXT 5%/0.45% NACL 1000ML 1,000 ML IV SCH ×3 (00:30→15:42)
[2021-05-27 04:00] VITALS: BP 131/85
[2021-05-27] MEDS: PIPERACILLIN/TAZOBACTAM 3.375 G in DEXTROSE 5% WATER 50 ML IV SCH ×3 (05:59→21:10)
[2021-05-27 08:00] VITALS: BP 136/92
[2021-05-27] MEDS: DIVALPROEX SODIUM 500MG DR TABLET PO SCH ×2 (08:42→16:46)
[2021-05-27] MEDS: LEVETIRACETAM 500MG PREMIX 100 ML IV SCH ×2 (08:42→20:22)
[2021-05-27 12:00] VITALS: BP 164/104
[2021-05-27] MEDS: HYDRALAZINE 20MG/ML VIAL IV PRN (14:38)
[2021-05-27 16:00] VITALS: BP 140/106
[2021-05-27] MEDS: AMLODIPINE 10MG TABLET PO SCH (16:46)
[2021-05-27 20:00] VITALS: BP 154/95
[2021-05-27] MEDS ORDERED: ACETAMINOPHEN 650MG/20.3ML UDC PO PRN (20:15)
[2021-05-27] MEDS ORDERED: DILTIAZEM HCL 5MG/ML 5ML VIAL IV NR (20:15)
[2021-05-28] VITALS (7 sets, daily range): BP systolic 128–151; BP diastolic 56–100
[2021-05-28] MEDS: PIPERACILLIN/TAZOBACTAM 3.375 G in DEXTROSE 5% WATER 50 ML IV SCH ×3 (05:47→22:38)
[2021-05-28] MEDS: DEXT 5%/0.45% NACL 1000ML 1,000 ML IV SCH (05:47)
[2021-05-28] MEDS: DIVALPROEX SODIUM 500MG DR TABLET PO SCH ×2 (08:37→16:27)
[2021-05-28] MEDS: AMLODIPINE 10MG TABLET PO SCH (08:38)
[2021-05-28] MEDS: LEVETIRACETAM 500MG PREMIX 100 ML IV SCH ×2 (08:38→21:00)
[2021-05-28 15:38] LABS: EOSINOPHILS % 1.4 % (0.0-5.0); HEMATOCRIT. 41.7 % (42.0-52.0); HEMOGLOBIN. 13.4 g/dL (14.0-18.0); LYMPHOCYTES % 11.4 % (20.0-50.0); MEAN CORPUSCULAR HEMOGLOBIN 26.4 pg (28.0-32.0); MEAN CORPUSCULAR VOLUME 82.2 fL (80.0-94.0); MEAN PLATELET VOLUME 8.4 fl (7.4-10.4); MONOCYTES % 9.3 % (2.0-8.0); NEUTROPHILS % 76.9 % (40.0-76.0); PLATELET 226 x1000/uL (130-400); RED BLOOD CELL COUNT 5.07 mill/uL (4.7-6.1); RED CELL DISTRIBUTION WIDTH 14.4 % (11.6-14.6)
[2021-05-28 15:48] LABS: CHLORIDE 109 mEq/L (98-107)
[2021-05-29] VITALS: BP 141/90
[2021-05-29 04:00] VITALS: BP 143/96
[2021-05-29] MEDS: DEXT 5%/0.45% NACL 1000ML 1,000 ML IV SCH ×2 (04:29→16:57)
[2021-05-29 08:00] VITALS: BP 150/100
[2021-05-29] MEDS: DIVALPROEX SODIUM 500MG DR TABLET PO SCH ×2 (08:43→16:56)
[2021-05-29] MEDS: AMLODIPINE 10MG TABLET PO SCH (08:43)
[2021-05-29] MEDS: LEVETIRACETAM 500MG PREMIX 100 ML IV SCH ×2 (08:44→20:47)
[2021-05-29 12:00] VITALS: BP 123/79
[2021-05-29 15:14] LABS: CHLORIDE 107 mEq/L (98-107)
[2021-05-29 15:27] LABS: BASOPHILS % 0.5 % (0.0-2.0); EOSINOPHILS % 2.5 % (0.0-5.0); HEMATOCRIT. 39.9 % (42.0-52.0); HEMOGLOBIN. 13.3 g/dL (14.0-18.0); MEAN CORPUSCULAR HEMOGLOBIN 27.3 pg (28.0-32.0); MEAN CORPUSCULAR VOLUME 81.8 fL (80.0-94.0); MEAN PLATELET VOLUME 8.2 fl (7.4-10.4); MONOCYTES % 12.6 % (2.0-8.0); NEUTROPHILS % 71.4 % (40.0-76.0); PLATELET 254 x1000/uL (130-400); RED BLOOD CELL COUNT 4.88 mill/uL (4.7-6.1); RED CELL DISTRIBUTION WIDTH 14.4 % (11.6-14.6)
[2021-05-29 16:00] VITALS: BP 133/90
[2021-05-29 20:00] VITALS: BP 130/87
[2021-05-30] VITALS: BP 128/60
[2021-05-30] MEDS: DEXT 5%/0.45% NACL 1000ML 1,000 ML IV SCH ×4 (00:52→23:40)
[2021-05-30 04:00] VITALS: BP 124/87
[2021-05-30 08:00] VITALS: BP 135/82
[2021-05-30] MEDS: LEVETIRACETAM 500MG TABLET PO SCH ×2 (09:13→23:40)
[2021-05-30] MEDS: DIVALPROEX SODIUM 500MG DR TABLET PO SCH ×2 (09:13→18:12)
[2021-05-30] MEDS: AMLODIPINE 10MG TABLET PO SCH (09:25)
[2021-05-30 12:00] VITALS: BP 142/88
[2021-05-30 16:00] VITALS: BP 110/70
[2021-05-30 20:00] VITALS: BP 134/92
[2021-05-31] VITALS: BP 121/84
[2021-05-31 04:00] VITALS: BP 105/77
[2021-05-31 08:00] VITALS: BP 111/61
[2021-05-31] MEDS: LEVETIRACETAM 500MG TABLET PO SCH ×2 (08:38→21:15)
[2021-05-31] MEDS: DIVALPROEX SODIUM 500MG DR TABLET PO SCH ×3 (08:38→18:12)
[2021-05-31] MEDS: AMLODIPINE 10MG TABLET PO SCH ×2 (08:38→08:42)
[2021-05-31] MEDS: DEXT 5%/0.45% NACL 1000ML 1,000 ML IV SCH (09:45)
[2021-05-31 12:00] VITALS: BP 119/82
[2021-05-31 16:00] VITALS: BP 114/74
[2021-05-31 20:00] VITALS: BP 131/88
[2021-06-01] VITALS: BP 111/78
[2021-06-01] MEDS: DEXT 5%/0.45% NACL 1000ML 1,000 ML IV SCH ×2 (04:43→16:10)
[2021-06-01 08:00] VITALS: BP 150/90
[2021-06-01] MEDS: DIVALPROEX SODIUM 500MG DR TABLET PO SCH ×2 (09:15→16:12)
[2021-06-01] MEDS: AMLODIPINE 10MG TABLET PO SCH (09:15)
[2021-06-01] MEDS: LEVETIRACETAM 500MG TABLET PO SCH ×2 (09:15→20:50)
[2021-06-01 12:00] VITALS: BP 133/95
[2021-06-01 16:00] VITALS: BP 135/85
[2021-06-01] MEDS ORDERED: METOPROLOL TARTRATE 25MG TABLET PO NR (17:45)
[2021-06-01 20:00] VITALS: BP 139/86
[2021-06-02] VITALS (7 sets, daily range): BP systolic 122–147; BP diastolic 78–99
[2021-06-02] MEDS: DEXT 5%/0.45% NACL 1000ML 1,000 ML IV SCH ×4 (00:43→22:39)
[2021-06-02] MEDS ORDERED: METOPROLOL TARTRATE 25MG TABLET PO NR (00:45)
[2021-06-02] MEDS: DIVALPROEX SODIUM 500MG DR TABLET PO SCH ×2 (08:37→17:10)
[2021-06-02] MEDS: LEVETIRACETAM 500MG TABLET PO SCH ×2 (08:37→22:17)
[2021-06-02] MEDS: AMLODIPINE 10MG TABLET PO SCH (08:37)
[2021-06-03] VITALS: BP 115/74
[2021-06-03 04:00] VITALS: BP 132/87
[2021-06-03 08:00] VITALS: BP 136/84
== END 2021-06-03 08:25 | DRG 871 ==
LOC: ER 18:52 → 8WST 05-23 00:02 → ENRESERV 05-23 02:04
PROVIDERS: ADMIT Internal Medicine; ATTEND Internal Medicine
PROC: 4A10X4Z Monitoring of Central Nervous Electrical Activity, External Approach (ICD-10-PCS; principal; 2021-05-24)
DX: A41.9 Sepsis, unspecified organism (principal); G93.41 Metabolic encephalopathy; J18.9 Pneumonia, unspecified organism; Q87.2 Congenital malformation syndromes predominantly involving limbs; E78.5 Hyperlipidemia, unspecified; F79 Unspecified intellectual disabilities; F06.1 Catatonic disorder due to known physiological condition; F44.9 Dissociative and conversion disorder, unspecified; I10 Essential (primary) hypertension; Z20.822 Contact with and (suspected) exposure to COVID-19; E78.00 Pure hypercholesterolemia, unspecified; Z91.012 Allergy to eggs; Z91.010 Allergy to peanuts; Z91.013 Allergy to seafood; Z91.018 Allergy to other foods; Z88.8 Allergy status to other drugs, medicaments and biological substances
CPT/HCPCS: 36415; 70551; 71045; 80048; 80076; 80165; 80305; 80307; 80329; 81003; 82140; 82542; 82550; 82962; 83880; 84145; 84484; 85025; 87426; 93005; 95816; 97162; 99285; J0360; J1953; J2060; J2543; J3490; J7060

== ENCOUNTER 2023-07-25 17:21 | Emergency (ER) | payer MEDICARE, MEDICAID ==
[~2023-07-25] VITALS: Ht 170.2 cm; Wt 66.0 kg
[~2023-07-25 17:21] MED LIST: DIVA500T3 MT; EMPA10TA MT; MICAR8 MT
[2023-07-25 17:47] VITALS: O2SAT 96
[2023-07-25] MEDS ORDERED: SODIUM CHLORIDE 0.9% 1,000 ML IV ONE ×2 (19:00)
[2023-07-25 19:35] LABS: CHLORIDE 95 mEq/L (98-107); INDEX HEMOLYSI 1 (1-3); INDEX ICTERIC 1 (1-4); INDEX LIPEMIC 1 (1-3); POTASSIUM 4.2 mEq/L (3.5-5.1); SODIUM 133 mEq/L (136-145)
[2023-07-25 19:44] LABS: ALANINE AMINOTRANSFERASE 25 IU/L (13-61); ALBUMIN 3.7 g/dL (3.4-5.0); ASPARTATE AMINOTRANSFERASE 13 IU/L (15-37); BASOPHILS % 0.7 % (0.0-2.0); BILIRUBIN TOTAL 0.5 mg/dL (0.1-1.0); CALCIUM 9.3 mg/dL (8.5-10.1); CARBON DIOXIDE 31 mEq/L (21-32); CREATININE 0.8 mg/dL (0.6-1.3); EOSINOPHILS % 4.4 % (0.0-5.0); HEMATOCRIT. 45.2 % (42.0-52.0); HEMOGLOBIN. 14.4 g/dL (14.0-18.0); LYMPHOCYTES % 36.9 % (20.0-50.0); MEAN CORPUSCULAR HEMOGLOBIN 26.7 pg (28.0-32.0); MEAN CORPUSCULAR VOLUME 83.6 fL (80.0-94.0); MEAN PLATELET VOLUME 8.6 fl (7.4-10.4); MONOCYTES % 7.1 % (2.0-8.0); NEUTROPHILS % 50.9 % (40.0-76.0); NT PRO B-TYPE NATRIURETIC PEP 35 pg/mL (5-125); PLATELET 223 x1000/uL (130-400); PROTEIN TOTAL 8.5 g/dL (6.0-8.3); TROPONIN I HIGH SENSITIVITY 5 ng/L (<78); UREA NITROGEN BLOOD 15 mg/dL (7-21); WHITE BLOOD COUNT 8.2 x1000/uL (4.5-11.0)
[2023-07-25 19:51] LABS: GLUCOSE 413 mg/dL (70-105)
[2023-07-25] MEDS ORDERED: INSULIN REGULAR (HUMULIN R) 300UNITS/3ML VIAL IV STA (20:28)
[2023-07-25 21:35] VITALS: BP 148/98; PULSE 102; RESP 18; TEMP 98.7
== END 2023-07-25 22:05 | disposition home or self-care (01) ==
LOC: ER 17:21
DX: R73.9 Hyperglycemia, unspecified (principal); E78.00 Pure hypercholesterolemia, unspecified; I10 Essential (primary) hypertension
CPT/HCPCS: 99285; 96374; 71045; 80053; 82962; 83880; 85025; 84484; 36415; 93005; J1815; J7030